=== PATIENT | male | born 1985 | race Caucasian/White ===

== ENCOUNTER 2019-10-28 21:41 | Emergency (ER) | payer BC ==
[~2019-10-28] VITALS: Ht 182.9 cm; Wt 59.9 kg
[2019-10-28] MEDS ORDERED: IBUPROFEN600 M1 ORAL (22:01)
--- NOTE | 2019-10-28 22:02 | Emergency Room Report ---
History of Present Illness General Chief Complaint: Pain Source: Patient Present Illness HPI This is a 34-year-old male with no past medical history. He presents with chief complaint of head injury and vomiting. Onset this afternoon. He leaned back against his dining room chair and fell backward hitting head on the floor. He has some swelling to the back of his head. Since then he has have some dizziness and couple episode of vomiting. No focal deficit. Pain is 8 out of 10. Worse with palpation. No fever chills. No focal deficit. No other complaint. Did not pass out. Allergies: Coded Allergies: PENICILLINS (Unverified Allergy, Unknown, 10/28/19) Uncoded Allergies: PENICILIN (Allergy, Unknown, 10/28/19) COVID-19 Screening Contact w/high risk pt: No Recent Travel to affected area: No Experienced COVID-19 symptoms?: No Patient History Past Medical History: see triage record, old chart reviewed Past Surgical History: none Pertinent Family History: none Social History: Denies: smoking Immunizations: other Reviewed Nursing Documentation: PMH: Agreed; PSxH: Agreed Nursing Documentation-PMH Past Medical History: No Stated History Review of Systems Eye: Denies: eye pain, blurred vision ENT: Denies: ear pain, nose congestion, throat swelling Respiratory: Denies: cough, shortness of breath Cardiovascular: Denies: chest pain, palpitations Gastrointestinal: Denies: abdominal pain, diarrhea, nausea, vomiting Musculoskeletal: Denies: back pain, joint pain Skin: Denies: rash Neurological: Denies: headache, numbness Endocrine: Denies: increased thirst, increased urine Hematologic/Lymphatic: Denies: easy bruising All Other Systems: negative except mentioned in HPI Physical Exam Vital Signs Date Time Temp Pulse Resp B/P (MAP) Pulse Ox O2 Delivery O2 Flow Rate FiO2 10/28/19 21:46 98.1 100 18 128/80 (96) 96 Room Air Vitals normal Sp02 EP Interpretation: reviewed, normal General Appearance: well appearing, no apparent distress, alert Head: normocephalic, other - Hematoma to the right occipital area Eyes: bilateral eye PERRL, bilateral eye EOMI ENT: hearing grossly normal, normal pharynx Neck: full range of motion, supple, no meningismus Respiratory: chest non-tender, lungs clear, normal breath sounds Cardiovascular #1: regular rate, rhythm, no murmur Gastrointestinal: normal bowel sounds, non tender, no mass, no organomegaly, no bruit, non-distended Musculoskeletal: back normal, normal range of motion, gait/station normal Psychiatric: mood/affect normal Medical Decision Making Diagnostic Impression: Primary Impression: Head injury, closed, with concussion Qualified Codes: S06.0X0A - Concussion without loss of consciousness, initial encounter ER Course Patient presents with head injury and now with postconcussive syndrome. No evidence of any intracranial bleeding or skull fracture. Will discharge home with reassurance. CT/MRI/US Diagnostic Results CT/MRI/US Diagnostic Results : Imaging Test Ordered: CT head Impression Negative per radiologist Last Vital Signs Date Time Temp Pulse Resp B/P (MAP) Pulse Ox O2 Delivery O2 Flow Rate FiO2 10/28/19 21:46 98.1 100 18 128/80 (96) 96 Room Air Status: improved Disposition: HOME, SELF-CARE Condition: Stable Scripts Ibuprofen* (MOTRIN*) 600 Mg Tablet 600 MG ORAL Q6H PRN for For Pain, #30 TAB 0 Refills Prov: Noble Hyatt MD 10/28/19 Additional Instructions: Follow-up with your doctor in 7 days. Return if symptoms worsen. Noble Hyatt MD Oct 28, 2019 22:02
[2019-10-28 22:15] VITALS: BP 128/80
[2019-10-28 22:18] VITALS: BP 128/80
--- NOTE | 2019-10-28 22:23 | Diagnostic Imaging Report ---
CT head without contrast History: Pain, trauma Technique: Axial noncontrast head CT. Dosage data not provided. Technique more: One or more of the following dose reduction techniques were used: automated exposure control, adjustment of the mA and/or kV according to patient size, use of iterative reconstruction technique. Comparison: None Findings: Edmond-white matter differentiation is seen to be normal. The ventricles, extra-axial CSF spaces are seen to be unremarkable. No acute intracranial hemorrhage mass-effect or edema. Visualized paranasal sinuses, mastoid air cells are noted to be normal. Impression: 1. No acute intracranial finding.
== END 2019-10-28 22:18 | disposition home or self-care (01) ==
LOC: EMR 22:05
DX: S06.0X0A Concussion without loss of consciousness, initial encounter (principal); F07.81 Postconcussional syndrome; R11.10 Vomiting, unspecified; Z88.0 Allergy status to penicillin; W19.XXXA Unspecified fall, initial encounter; Y92.9 Unspecified place or not applicable
CPT/HCPCS: 70450; 99284